=== PATIENT | male | born 1945 | race Caucasian/White ===

== ENCOUNTER → 2019-11-22 | Outpatient (CLI) | payer OTHER ==
--- NOTE | 2019-11-22 13:44 | CT ---
EXAM DESCRIPTION: 1. CTA Abdomen (accession [id number]) 2. CTA Pelvis (accession [id number]) CLINICAL HISTORY: 74 years, Male, ABDOMINAL AORTIC ANEURYSM COMPARISON: None available. TECHNIQUE: Rapid bolus administration of IV contrast was performed with thin-section axial scanning of the CT abdomen and pelvis performed in a dynamic fashion for the purpose of CT angiogram. Reconstructed multiplanar and three dimensional MIP images created on a separate dedicated workstation are reviewed along with the source axial images and stored in the patient's medical record. This exam was performed according to our departmental dose-optimization program, which includes automated exposure control, adjustment of the mA and/or kV according to patient size and/or use of iterative reconstruction technique. FINDINGS: VASCULAR: Abdominal aorta: Infrarenal abdominal aortic aneurysm measures 4.4 x 4.3 cm (axial image 81). Eccentric luminal thrombus occupies up to 60% of the aneurysm sac. No periaortic fat stranding or CT evidence of impending rupture. Celiac: Mild plaquing with no significant ostial stenosis. SMA: Mild ostial stenosis (approximately 10-20%). LASHONDA: Patent with flow. Right and left renal arteries: Two right-sided renal arteries are present (the superior one is dominant), the inferior right renal artery supplies the right kidney inferior pole. Mild (approximately 10%) right superior proximal renal artery stenosis). Mild to moderate left distal renal artery stenosis (up to 40%). Right Iliac: Moderate mixed atherosclerotic plaquing of the common and internal iliac arteries with approximately 20% stenosis of the proximal common iliac artery with poststenotic dilation measuring up to 1.5 cm. Moderate multifocal atherosclerotic stenosis of the right external iliac and common femoral arteries. Left Iliac: Moderate mixed atherosclerotic plaquing of the common with moderate (up to 50%) stenosis of the left common iliac artery. Moderate multifocal stenoses of the left external iliac and common femoral arteries. NONVASCULAR: Lung bases: Mild right bibasilar subsegmental atelectasis. Left basilar small scarring. Liver: Normal enhancement. No intrahepatic biliary ductal dilatation. Gallbladder: No calcified gallstones. Spleen: No splenomegaly. Pancreas: Unremarkable. Adrenals: Mild nodular thickening of the left adrenal gland. Kidneys: Enhances normally. No hydronephrosis. Small renal cysts. Lymph nodes: Scattered small abdominal nodes, none meeting CT criteria for pathologic enlargement. Bowel, bladder, and pelvic organs: Moderate descending and sigmoid diverticulosis without definite diverticulitis. The bladder is normal. Small scattered prostatic calcifications.. Musculoskeletal: Multilevel degenerative changes of the spine. IMPRESSION: 1. Infrarenal abdominal aortic aneurysm measuring 4.4 cm with luminal thrombus occupying up to 60% of the aneurysm sac. Follow-up imaging every 12 months, recommend vascular consultation. 2. Advanced atherosclerosis with moderate left common iliac multifocal stenoses. 3. Moderate multifocal stenoses of the bilateral external iliac and common femoral arteries. 4. Moderate diverticulosis. Electronically signed by: Rodrigue Iyer DO 11/22/2019 1:43 PM CDT
--- NOTE | 2019-11-22 14:29 | MRI ---
EXAM DESCRIPTION: Lumbar Spine w/o Contrast : Magnetic Resonance Imaging. CLINICAL HISTORY: RADICULOPATHY COMPARISON: CT abdomen and pelvis on the same visit. TECHNIQUE: Multiplanar, multiple standard sequences, non contrast MRI, lumbar spine. FINDINGS: L5-S1: The disc is well visualized on axial T2 series 501, image 3. Minimal disc space loss in the midline greater on the lateral margins. Posterior left disc protrusion 6 mm and inferior extrusion encroaching on the left subarticular recess with compromise of the left S1 nerve. Degenerative hypertrophy of the posterior flavum ligaments and facet joints (canal elements). AP canal diameter 7 mm. Disc is also extruded above the disc space in the midline. Sclerosis right L5 pedicle, possible lysis. Disc osteophyte complex bilaterally: moderate to severe left foraminal narrowing and right foraminal stenosis. L4-L5: Disc desiccation anterior endplate reactive changes or mild. Posterior broad-based disc bulge. Bilateral subarticular recess stenosis and compromise bilateral L5 nerves. Degenerative hypertrophy of the canal elements. AP canal diameter 5.5 mm. Mild narrowing of the bilateral foramina. L3-L4: Disc desiccation with disc space maintained. Large inactive Schmorl's node superior L4 endplate. Mild canal narrowing. Minimal degenerative hypertrophy of the canal elements. Mild left foraminal narrowing and right foramen patent. L2-L3: Moderate disc space loss on the right and moderate endplate reactive changes in marked disc space loss on the left. Disc osteophyte complex encroaching on the left foramen which is moderately narrowed. Trace posterior retrolisthesis and disc osteophyte encroachment on the canal and bilateral subarticular recess narrowing. Minimal degenerative hypertrophy of the canal elements. AP canal diameter 11 mm. L1-L2: Disc desiccation and anterior bulging and endplate spurs. Posterior disc bulge. Trace retrolisthesis. Bilateral subarticular recess narrowing. Degenerative hypertrophy of the canal elements. AP canal diameter 13 mm. Mild left foraminal narrowing with right foramen patent. T12-L1: Disc desiccation posterior disc space loss. No bulging. Minimal degenerative hypertrophy of the canal elements. Canal and foramina are patent. Dextroscoliosis L1-L3. Paravertebral soft tissues muscle atrophy.. Transverse diameter of aorta at the L3-L4 disc space is 4.5 cm. Length is 7.2 cm. AP diameter is 2.8 cm at L2. Distal cord normal signal and caliber. Normal marrow signal in the remaining vertebral bodies and the posterior elements. Vertebral bodies are not compressed at any level. IMPRESSION: 1. Multiple levels of disc desiccation, spondylosis, degenerative hypertrophy of the flavum ligaments and facet joints, unilateral/bilateral subarticular recess narrowing/stenosis, and spondylolisthesis. 2. Left posterior disc osteophyte protrusion at L5-S1 encroaching on the subarticular recess and the left S1 nerve. Moderate central and left paracentral canal stenosis. Possible spondylolysis on the right L5 pedicle. Right foraminal stenosis. 3. Multifactorial central severe canal stenosis at L4-L5. Bilateral subarticular recess stenosis and compromise bilateral L5 nerves. Mild narrowing of the foramina. 4. For details about other disc space levels, please see above findings. Electronically signed by: Arun Wheat MD 11/22/2019 2:27 PM CDT
== END ==
LOC: MRI 08:36
PROVIDERS: ATTEND Anesthesiology
DX: Z01.812 Encounter for preprocedural laboratory examination (principal); I71.4 Abdominal aortic aneurysm, without rupture; I74.09 Other arterial embolism and thrombosis of abdominal aorta; I70.203 Unspecified atherosclerosis of native arteries of extremities, bilateral legs; K57.30 Diverticulosis of large intestine without perforation or abscess without bleeding; M51.36 Other intervertebral disc degeneration, lumbar region; M47.896 Other spondylosis, lumbar region; M24.28 Disorder of ligament, vertebrae; M46.96 Unspecified inflammatory spondylopathy, lumbar region; M43.16 Spondylolisthesis, lumbar region; M48.061 Spinal stenosis, lumbar region without neurogenic claudication; M48.07 Spinal stenosis, lumbosacral region